=== PATIENT | male | born 2000 ===

== ENCOUNTER 2020-06-24 06:55 | Emergency (ER) | payer BC ==
[2020-06-24] MEDS ORDERED: Dexamethasone 10 MG/ML VIAL ONE (07:35)
[2020-06-24] MEDS ORDERED: cefTRIAXone\\ROCEPHIN 1 GM VIAL ONE (07:35)
[2020-06-24] MEDS ORDERED: Lidocaine 1% PF 5 ML VIAL ONE (07:42)
[2020-06-24] MEDS ORDERED: Dexamethasone 4 MG TAB ONE (07:42)
[2020-06-25] MEDS ORDERED: Diltiazem 125 MG/25 ML ONE (08:27)
== END 2020-06-24 07:58 | disposition home or self-care (01) ==
LOC: ERS 06:55
DX: J03.90 Acute tonsillitis, unspecified (principal)
CPT/HCPCS: 96372; 99282; J0696; J1100; J8540